=== PATIENT | male | born 1945 | race Hispanic/Latino ===

== ENCOUNTER 2022-03-08 07:00 | Day surgery (SDC) | payer OTHER ==
[2022-03-04 10:01] LABS: BASOPHILS % (AUTO) 0.5 % (0.0-5.0); EOSINOPHILS % (AUTO) 3.9 % (0.0-8.0); HEMATOCRIT 39.4 % (42-54); LYMPHOCYTES % (AUTO) 11.2 % (21.0-51.0); MEAN CORPUSCULAR HEMOGLOBIN 30.2 pg (27.0-33.0); MEAN CORPUSCULAR HGB CONC 33.5 g/dL (32.0-36.0); MEAN CORPUSCULAR VOLUME 90.2 fL (79-99); MONOCYTES % (AUTO) 5.6 % (3.0-13.0); NEUTROPHILS % (AUTO) 78.4 % (40.0-77.0); PLATELET COUNT (AUTO) 179 K/uL (130-400); RED BLOOD CELL COUNT(AUTO) 4.37 MIL/uL (4.50-6.20); RED CELL DISTRIBUTION WIDTH 13.9 % (11.0-15.5); WHITE BLOOD COUNT (AUTO) 9.8 K/uL (4.8-10.8)
[2022-03-04 10:21] LABS: CREATININE 1.9 mg/dL (0.5-1.5); POTASSIUM 5.1 mmol/L (3.5-5.1)
[2022-03-04 10:30] LABS: INR 0.93 (0.85-1.15); PROTHROMBIN TIME 10.1 SEC (9.6-11.6)
[2022-03-04 10:31] LABS: PARTIAL THROMBOPLASTIN TIME 30.8 SEC (26.3-35.5)
[2022-03-07 13:04] VITALS: BP 159/85
[~2022-03-08] VITALS: Ht 175.3 cm; Wt 89.0 kg
[2022-03-08] VITALS (18 sets, daily range): BP systolic 139–189; BP diastolic 7–95
[~2022-03-08 07:00] MED LIST: ASPI-1443 PO; ATOR40TA71 PO; BACITRACIN 28.4 GM OINT TP ONE; CARV6.25 PO; COLE1TAB2 PO; EAR DROPS OT; EPINEPHRINE 1 MG/ML 30ML VIAL IJ ONE; EPINEPHRINE PF 1MG (1:1,000) 1 MG/ML AMP ONE; FURO20TA4 PO; ICOS1CAP2 PO; INSLAN SQ; INSU100C6 SQ; ISOS30TA92 PO; LATA2.5D14 OP; TAMS0.4C32 PO
[2022-03-08] MEDS ORDERED: 0.9%NACL 1000ML 1,000 ML IV ONE (07:20)
[2022-03-08] MEDS ORDERED: LIDOCAINE 1%-EPI 1:100,000 20 ML VIAL IJ ONE ×2 (08:00→09:04)
[2022-03-08] MEDS ORDERED: LIDOCAINE PF 100MG/5ML (2%) SYRINGE 5ML ONE (08:44)
[2022-03-08] MEDS ORDERED: FENTANYL CITRATE PF 50 MCG/1 ML 2ML VIAL ONE ×2 (08:45→09:14)
[2022-03-08] MEDS ORDERED: ROCURONIUM 10MG/1ML SYR 10 MG/ML ML ONE (08:45)
[2022-03-08] MEDS ORDERED: PROPOFOL 10 MG/ML 20ML VIAL IV ONE (08:45)
[2022-03-08] MEDS ORDERED: MIDAZOLAM HCL 1 MG/ML 2ML VIAL ONE (08:47)
[2022-03-08] MEDS ORDERED: EPINEPHRINE 1 MG/ML 30ML VIAL IJ ONE (09:05)
[2022-03-08] MEDS ORDERED: DEXAMETHASONE SOD PHOSPHATE 10MG/ML 1ML VIAL ONE (09:07)
[2022-03-08] MEDS ORDERED: ONDANSETRON 4MG INJ ONE (09:07)
[2022-03-08] MEDS ORDERED: CEFAZOLIN SODIUM 2 GM VIAL IVPB ONE (09:09)
[2022-03-08] MEDS ORDERED: CEFAZOLIN SODIUM 1 GM VIAL ONE (09:09)
[2022-03-08] MEDS ORDERED: BACITRACIN 28.4 GM OINT TP ONE (09:40)
[2022-03-08] MEDS ORDERED: EPHEDRINE SULFATE 50 MG/ML AMPULE ONE (10:23)
[2022-03-08] MEDS ORDERED: NEOSTIGMINE 5MG/5ML SYR IV ONE (11:23)
[2022-03-08] MEDS ORDERED: GLYCOPYRROLATE 1 MG/5 ML SYRINGE ONE (11:23)
[2022-03-08] MEDS ORDERED: LABETALOL 20MG SYG IV ONE (11:45)
[2022-03-08] MEDS ORDERED: HYDRALAZINE 20MG/ML VIAL ONE (12:12)
== END 2022-03-08 13:45 | disposition home or self-care (01) ==
LOC: DAH 07:00
PROVIDERS: ATTEND Otolaryngology Plastic Surgery within the Head & Neck
DX: H70.11 Chronic mastoiditis, right ear (principal); Z20.822 Contact with and (suspected) exposure to COVID-19; H71.91 Unspecified cholesteatoma, right ear; H74.41 Polyp of right middle ear; G47.30 Sleep apnea, unspecified; I25.10 Atherosclerotic heart disease of native coronary artery without angina pectoris; I10 Essential (primary) hypertension; E66.01 Morbid (severe) obesity due to excess calories; Z79.01 Long term (current) use of anticoagulants; Z79.899 Other long term (current) drug therapy; Z95.1 Presence of aortocoronary bypass graft
CPT/HCPCS: 80048; 85025; 85610; 85730; 87426; 36415; 93005; 69642; 82948 ×2; A4663; J7040; J7030 ×2; A4649 ×2; A4452; J3010 ×2; J0690 ×2; J3490 ×4; J1100; J2710; J0171 ×3; J2001; J0360; J2250; J2704; J2405; A6446; A4215; A4223; A4222; A4221

== ENCOUNTER 2022-04-06 11:00 | Emergency (ER) | payer OTHER ==
[~2022-04-06] VITALS: Ht 175.3 cm; Wt 87.1 kg
[~2022-04-06 11:00] MED LIST changes: -ASPI-1443 PO; -BACITRACIN 28.4 GM OINT TP ONE; -EPINEPHRINE 1 MG/ML 30ML VIAL IJ ONE; -EPINEPHRINE PF 1MG (1:1,000) 1 MG/ML AMP ONE
[2022-04-06 12:14] LABS: CREATININE 2.4 mg/dL (0.5-1.5); POTASSIUM 5.4 mmol/L (3.5-5.1)
[2022-04-06 12:19] LABS: ALBUMIN 3.4 g/dL (3.5-5.0); TOTAL PROTEIN, SERUM 7.4 g/dL (6.0-8.3)
[2022-04-06 12:28] LABS: BASOPHILS % (AUTO) 0.4 % (0.0-5.0); EOSINOPHILS % (AUTO) 0.7 % (0.0-8.0); HEMATOCRIT 36.1 % (42-54); LYMPHOCYTES % (AUTO) 18.8 % (21.0-51.0); MEAN CORPUSCULAR HEMOGLOBIN 29.4 pg (27.0-33.0); MEAN CORPUSCULAR HGB CONC 32.4 g/dL (32.0-36.0); MEAN CORPUSCULAR VOLUME 90.7 fL (79-99); MONOCYTES % (AUTO) 6.1 % (3.0-13.0); NEUTROPHILS % (AUTO) 73.4 % (40.0-77.0); PLATELET COUNT (AUTO) 224 K/uL (130-400); RED BLOOD CELL COUNT(AUTO) 3.98 MIL/uL (4.50-6.20); RED CELL DISTRIBUTION WIDTH 14.2 % (11.0-15.5); WHITE BLOOD COUNT (AUTO) 8.1 K/uL (4.8-10.8)
[2022-04-06] MEDS ORDERED: 0.9%NACL 1000ML 1,000 ML IV ONE (13:00)
[2022-04-06] MEDS ORDERED: KETOROLAC 30MG VIAL (30MG/ML) IM ONE (15:30)
[2022-04-06 16:16] VITALS: BP 146/62
== END 2022-04-06 16:16 | disposition home or self-care (01) ==
LOC: EDH 11:00
DX: R51.9 Headache, unspecified (principal); R42 Dizziness and giddiness; E11.9 Type 2 diabetes mellitus without complications; E78.00 Pure hypercholesterolemia, unspecified; I10 Essential (primary) hypertension; Z79.899 Other long term (current) drug therapy
CPT/HCPCS: 99285; 96360; 70450; 80053; 85025; 36415; 96372; J7030; J1885

== ENCOUNTER → 2022-07-15 | Outpatient (CLI) | payer OTHER ==
[~2022-07-15] MED LIST changes: +GADOTERATE MEGLUMINE 5 MMOL/10 ML VIAL IV ONE
== END | disposition home or self-care (01) ==
LOC: RAH 09:02
PROVIDERS: ATTEND Otolaryngology Plastic Surgery within the Head & Neck
DX: H90.3 Sensorineural hearing loss, bilateral (principal)
CPT/HCPCS: 70553; A9575